=== PATIENT | female | born 1985 | race American Indian/Alaskan Native ===

== ENCOUNTER 2017-03-28 02:56 | Emergency (ER) | payer SELFPAY ==
[2017-03-28 03:30] LABS: Basophils % (Auto) 0.4 % (0.0-1.8); Eosinophils % (Auto) 1.4 % (0.0-4.3); Hematocrit 36.8 % (30.3-42.9); Mean Corpuscular HGB Conc 33 % (30-34); Mean Corpuscular Hemoglobin 29 pg (28-32); Mean Corpuscular Volume 87 fl (79-97); Platelet Count 198 K/mm3 (140-440); Red Blood Count 4.21 M/mm3 (3.65-5.03); Red Cell Distribution Width 13.9 % (13.2-15.2); White Blood Count 6.3 K/mm3 (4.5-11.0)
[2017-03-28 03:46] LABS: Alanine Aminotransferase 16 units/L (7-56); Albumin 4.2 g/dL (3.9-5); Albumin/Globulin Ratio 1.5 %; Alkaline Phosphatase 54 units/L (35-129); Anion Gap 18 mmol/L; Blood Urea Nitrogen 12 mg/dL (7-17); Carbon Dioxide 25 mmol/L (22-30); Chloride 99.3 mmol/L (98-107); Glucose 90 mg/dL (65-100); Lipase 56 units/L (13-60); Potassium 3.8 mmol/L (3.6-5.0); Sodium 138 mmol/L (137-145)
[2017-03-28 05:32] VITALS: BP 122/79
--- NOTE | 2017-03-28 06:28 | Cat Scan Report ---
FINAL REPORT PROCEDURE: CT ABDOMEN PELVIS WO CON TECHNIQUE: Computerized axial tomography of the abdomen and pelvis was performed without intravenous contrast. This study is performed without intravascular contrast material and its sensitivity for abdominal and pelvic pathology, including neoplasms, inflammation, abscess, free fluid, thrombosis, arterial dissection and infarction, is reduced compared with a contrast enhanced study. HISTORY: abd flank pn rlq pain COMPARISON: No prior studies are available for comparison. FINDINGS: Visualized lower thorax: No significant abnormality. Liver: The liver is prominent. There is no mass.. Spleen: Normal size and attenuation. Gallbladder and biliary system: Normal. Pancreas: Normal. Adrenals: Normal. Kidneys: There are no kidney stones or ureteral stones. There is no hydronephrosis.. GI tract: There is no bowel obstruction, colitis or enteritis. There is a large amount of stool in the colon. The appendix is normal.. Lymph nodes and mesentery: Normal. Vasculature: Normal. Bladder: Normal. Reproductive organs: Uterus is unremarkable. There is an ill-defined low-density mass in the right adnexal region measuring 2.8 centimeters which could be a cyst. There is dense fluid in the pelvic cul-de-sac suggesting blood possibly related to recent ovarian cyst rupture. Pelvic ultrasound may be helpful.. Peritoneum: There is no pneumoperitoneum. Musculoskeletal structures: No significant abnormality. Other: There is a ventral hernia but no bowel incarceration.. IMPRESSION: There is an ill-defined low-density mass in the right adnexal region measuring 2.8 centimeters which could be a cyst. There is dense fluid in the pelvic cul-de-sac suggesting blood possibly related to recent ovarian cyst rupture. Pelvic ultrasound may be helpful.. The liver is prominent. There is no mass.. There are no kidney stones or ureteral stones. There is no hydronephrosis.. There is no bowel obstruction, colitis or enteritis. There is a large amount of stool in the colon. The appendix is normal.. There is no pneumoperitoneum. There is a ventral hernia but no bowel incarceration.. .
[2017-03-28 07:46] LABS: Bacteria,Urine 2+ /HPF (Negative); Bilirubin,Urine NEG (Negative); Blood,Urine NEG (Negative); Ketones,Urine NEG (Negative); Leukocyte Esterase,Urine SM (Negative); Mucus,Urine FEW /HPF; Nitrite,Urine NEG (Negative); Protein,Urine <15 mg/dL mg/dL (Negative)
--- NOTE | 2017-04-03 22:42 | ED Elopement Review ---
ED Pt Elopement review - Results review Lab results: Laboratory Tests 03/28/17 03/28/17 03/28/17 03:09 03:09 03:14 WBC 6.3 RBC 4.21 Hgb 12.0 Hct 36.8 MCV 87 MCH 29 MCHC 33 RDW 13.9 Plt Count 198 Lymph % (Auto) 43.3 H [place] % (Auto) 8.2 H Eos % (Auto) 1.4 Baso % (Auto) 0.4 Lymph # 2.7 [place] # 0.5 Eos # 0.1 Baso # 0.0 Seg Neutrophils % 46.7 Seg Neutrophils # 2.9 Sodium 138 Potassium 3.8 Chloride 99.3 Carbon Dioxide 25 Anion Gap 18 BUN 12 Creatinine 0.4 L Estimated GFR > 60 BUN/Creatinine Ratio 30.00 Glucose 90 Calcium 9.0 Total Bilirubin 0.80 AST 19 ALT 16 Alkaline Phosphatase 54 Total Protein 7.0 Albumin 4.2 Albumin/Globulin Ratio 1.5 Lipase 56 HCG, Qual Negative Urine Color Urine Turbidity Urine pH Ur Specific [place] Urine Protein Urine Glucose (UA) Urine Ketones Urine Blood Urine Nitrite Urine Bilirubin Urine Urobilinogen Ur Leukocyte Esterase Urine WBC (Auto) Urine RBC (Auto) U Epithel Cells (Auto) Urine Bacteria (Auto) Urine Mucus 03/28/17 07:25 WBC RBC Hgb Hct MCV MCH MCHC RDW Plt Count Lymph % (Auto) [place] % (Auto) Eos % (Auto) Baso % (Auto) Lymph # [place] # Eos # Baso # Seg Neutrophils % Seg Neutrophils # Sodium Potassium Chloride Carbon Dioxide Anion Gap BUN Creatinine Estimated GFR BUN/Creatinine Ratio Glucose Calcium Total Bilirubin AST ALT Alkaline Phosphatase Total Protein Albumin Albumin/Globulin Ratio Lipase HCG, Qual Urine Color Yellow Urine Turbidity Clear Urine pH 7.0 Ur Specific [place] 1.012 Urine Protein <15 mg/dl Urine Glucose (UA) Neg Urine Ketones Neg Urine Blood Neg Urine Nitrite Neg Urine Bilirubin Neg Urine Urobilinogen 2.0 Ur Leukocyte Esterase Sm Urine WBC (Auto) 4.0 Urine RBC (Auto) 3.0 U Epithel Cells (Auto) 2.0 Urine Bacteria (Auto) 2+ Urine Mucus Few - Call Back decision Pt Call Back Decision: Pt to F/U with PMD (for pelvic us)
== END 2017-03-28 05:04 | disposition left against medical advice (07) ==
LOC: ED 02:56
DX: R52 Pain, unspecified (principal); Z53.21 Procedure and treatment not carried out due to patient leaving prior to being seen by health care provider
CPT/HCPCS: 36415; 74176; 80053; 81001; 83690; 84703; 85025